=== PATIENT | female | born 1995 | race African-American/Black ===

== ENCOUNTER 2022-07-15 12:41 | Emergency (ER) | payer OTHER ==
[~2022-07-15] VITALS: Ht 165.1 cm; Wt 93.0 kg
[2022-07-15] MEDS ORDERED: TETANUS, DIPHTHERIA, PERTUSSIS VAC/PF 0.5ML (>10YR OLD) IM ONE (14:15)
[2022-07-15] MEDS ORDERED: KETOROLAC 60MG/2ML VIAL IM ONE (14:15)
[2022-07-15] MEDS ORDERED: ACETAMINOPHEN 325MG TABLET PO ONE (14:15)
[2022-07-15] MEDS ORDERED: LIDOCAINE HCL/EPINEPHRINE 1%-EPI 1:100,000 50 ML VIAL INFIL ONE (14:45)
[2022-07-15] MEDS ORDERED: LIDOCAINE HCL 1% 20ML VIAL (Pyxis) INJ INFIL ONE (16:30)
[2022-07-15] MEDS ORDERED: LIDOCAINE HCL 1% 10 MG/ML 10ML VIAL IJ NR (16:45)
[2022-07-15] MEDS ORDERED: CEPH500T MT (22:37)
[2022-07-15 23:00] VITALS: BP 118/86
== END 2022-07-15 23:15 | disposition home or self-care (01) ==
LOC: ER 12:41
DX: S91.311A Laceration without foreign body, right foot, initial encounter (principal); W01.0XXA Fall on same level from slipping, tripping and stumbling without subsequent striking against object, initial encounter; W22.8XXA Striking against or struck by other objects, initial encounter; Y93.9 Activity, unspecified; Y92.9 Unspecified place or not applicable; Z98.890 Other specified postprocedural states
CPT/HCPCS: 12002; 73610; 73630; 90471; 90715; 96372; 99284; J1885; J3490